=== PATIENT | male | born 2000 | race Hispanic/Latino ===

== ENCOUNTER 2025-03-17 19:04 | Emergency (ER) | payer OTHER ==
[~2025-03-17] VITALS: Ht 170.2 cm; Wt 73.0 kg
[2025-03-18 02:28] VITALS: BP 132/75; TEMP 98.5; O2SAT 98
== END 2025-03-18 02:30 | disposition left against medical advice (07) ==
LOC: M ED 19:04
DX: S01.01XA Laceration without foreign body of scalp, initial encounter (principal); V47.5XXA Car driver injured in collision with fixed or stationary object in traffic accident, initial encounter; J34.1 Cyst and mucocele of nose and nasal sinus; Y92.410 Unspecified street and highway as the place of occurrence of the external cause; Y93.89 Activity, other specified; Y99.9 Unspecified external cause status; Z53.9 Procedure and treatment not carried out, unspecified reason